=== PATIENT | female | born 1995 | race Caucasian/White ===

== ENCOUNTER → 2022-04-30 14:51 | Outpatient (BNVA) | payer OTHER, SELFPAY | PROVIDERS: Visit Provider Obstetrics & Gynecology | DX: N73.0 Acute parametritis and pelvic cellulitis (principal); N73.9 Female pelvic inflammatory disease, unspecified; R10.2 Pelvic and perineal pain; N92.0 Excessive and frequent menstruation with regular cycle; N93.9 Abnormal uterine and vaginal bleeding, unspecified; Z12.4 Encounter for screening for malignant neoplasm of cervix | CPT/HCPCS: 83001; 84443; 84702; 85025; 88175 ==

== ENCOUNTER 2022-06-03 10:46 | Outpatient (CLI) | payer OTHER, SELFPAY ==
--- NOTE | 2022-06-03 11:00 | US_ITS ---
WS: [id number] Pelvic ultrasound, 06/03/2022 Clinical Data: N92.0 - Excessive and frequent menstruation with regular ... Comparison: Pelvic ultrasound, 07/05/2017. Findings: The uterus measures 9.1 cm x 5.7 cm x 4.7 cm. The uterus shows heterogeneous echotexture. The endometrium is 0.58 cm. with minimal fluid. No intrauterine or abnormal intrauterine ma ss is seen. The cervical length is long and closed. The left ovary measures 2.9 cm x 2.7 cm x 3.4 cm with no cysts or masses. The right ovary measures 3.6 cm x 2.5 cm x 3.4 cm with a 1.86 x 2.25 x 2.31 cm simple cyst. There is minimal fluid in the cul-de-sac. US/US pelvic with transvaginal Impression: 1. Negative pelvic ultrasound. 2. Incidental right ovarian cyst and fluid in the cul-de-sac.
== END 2022-06-03 10:47 | disposition home or self-care (01) ==
LOC: RAD 10:47
PROVIDERS: Visit Provider Obstetrics & Gynecology
DX: N92.0 Excessive and frequent menstruation with regular cycle (principal); R10.2 Pelvic and perineal pain
CPT/HCPCS: 76830; 76856